=== PATIENT | female | born 1990 | race Caucasian/White ===

== ENCOUNTER 2023-06-07 08:45 | Emergency (ER) | payer OTHER, SELFPAY ==
--- NOTE | ~2023-06-07 | XR_ITS ---
EXAMINATION: XR FOOT, RIGHT CLINICAL INFORMATION: Dropped heavy object on foot COMPARISON: None available. TECHNIQUE: AP, lateral, and oblique views of the right foot. FINDINGS: No acute visible fracture dislocation. Slight hallux valgus. Suggestion of pes cavus. Joint spaces and alignment are maintained. Soft tissues are unremarkable. XR/XR foot RT min 3V IMPRESSION: 1. No acute visible fracture or dislocation. 2. Slight hallux valgus. 3. Suggestion of pes cavus.
[2023-06-07 08:52] VITALS: BP 143/81; PULSE 110; RESP 19; TEMP 36.6; O2SAT 98; BMI 23.9
--- NOTE | 2023-06-07 09:50 | ED.LOWEXIN ---
HPI - Extremity Injury (Lower) General Chief Complaint: Extremity Injury, Lower Stated Complaint: R foot inj Time Seen by Provider: 06/07/23 09:39 Source: patient and RN notes reviewed Mode of arrival: ambulatory Limitations: no limitations History of Present Illness HPI Narrative: This is a 32-year-old female, with a history of complex regional pain syndrome, presenting to the emergency department with complaints of right foot pain since last night. Patient states that a fire extinguisher accidentally dropped onto the top of her foot. She immediately had pain. She states that she has had increased pain and swelling in her right foot. She has been alternating ibuprofen and Tylenol without any relief. She states that she previously fractured her foot in the past. She does not weight bear on this foot secondary to the complex regional pain syndrome that she has. No other complaints or concerns at this time. MD complaint: foot injury Onset (ago): day(s) Type of Injury: blunt Place: home Severity: severe Exacerbating factors: movement and palpation Context: direct blow Associated symptoms: swelling Other symptoms: none Treatments prior to arrival: NSAIDS Related Data Allergies Allergy/AdvReac Type Severity Reaction Status Date / Time pregabalin [From Lyrica] Allergy Rash Verified 06/07/23 08:52 transparent dressing Allergy Rash Verified 06/07/23 08:52 [Tegaderm] oxycodone AdvReac Vomiting Verified 06/07/23 08:52 Review of Systems Review of Systems: Yes all other systems are reviewed and are negative Constitutional: Constitutional: Reports as per [facility] Past Medical History Attestation statement: The following information was validated with the patient. Physical Exam Vital Signs: Vital Signs: Last Vital Signs Temp 98 F 06/07/23 08:52 Pulse 110 H 06/07/23 08:52 Resp 19 06/07/23 08:52 BP 143/81 H 06/07/23 08:52 Pulse Ox 98 06/07/23 08:52 O2 Del Method Room Air 06/07/23 08:52 BMI result Body Mass Index 23.9 Const: General: cooperative, comfortable and no acute distress Orientation/consciousness: patient oriented x3 Limitations: no limitations HEENT: Head: Yes normal to inspection, Yes normocephalic and Yes atraumatic Ears: hearing grossly normal bilaterally General nose exam: Normal external nose present Face and sinus: Yes normal facial exam Mouth: Normal oral and palatal mucosa present, oropharynx normal and moist mucous membranes Throat: Yes posterior oropharynx normal Eyes: General: appearance normal, both eyes and all related structures Eyelids: Yes eyelids normal Conjunctivae: conjunctivae normal Sclerae: sclerae normal Pupils: Equal, round and reactive pupils present EOM: EOMs intact bilaterally Neck: Neck: Yes normal visual inspection, Yes full ROM and Yes no lymphadenopathy Lymphatic: no lymphadenopathy noted Chest: Chest palpation & inspection: normal inspection of the chest Resp: Effort & Inspection: normal respiratory effort and able to speak in complete sentences Cardio: Rate: regular rate Rhythm: regular rhythm GI: Inspection: Yes normal to inspection Skin: General skin exam: no rashes or lesions noted Trauma: no lacerations or abrasions Wounds: no wounds Neuro: General: patient oriented x3 and moves all extremities Cranial nerves: Yes Equal, round and reactive pupils present Extrem: Other: Right foot dorsal aspect there is moderate edema and ecchymosis noted, with exquisite tenderness palpation along the 3rd 4th and 5th metatarsals. Decreased range of motion of the ankle secondary to pain. No tenderness palpation along the medial or lateral malleolus. DP pulse 2 +. Distal sensation circulation intact. General: Yes normal to inspection Right upper extremity: normal to inspection Left upper extremity: normal to inspection Left lower extremity: normal to inspection Medical Decision Making Medical Decision Making MDM Narrative: This is a 32-year-old female, with a history of complex regional pain syndrome, presenting to the emergency department for evaluation of right foot pain status post dropping a fire extinguisher to the top of her foot last night. On arrival, patient tachycardic at 110, likely secondary to pain, denies any chest pain, dizziness, lightheadedness, or shortness of breath. On examination, patient has tenderness palpation along the 2nd 3rd and 4th metatarsals. No 5th metatarsal tenderness. No tenderness palpation along the medial or lateral malleolus. Differential diagnoses include fracture, dislocation, sprain, strain. Less likely compartment syndrome. X-ray was obtained revealing no acute bony abnormalities, there is evidence of pes cavus as well as hallux valgus. Discussed findings with patient. Patient is already nonambulatory on this foot, advised to rest, ice, elevate, and use Cr wrap. Advised to continue alternate between ibuprofen and Tylenol as needed for pain. Given orthopedic follow-up if symptoms persist. Given return precautions. She understands and agrees with plan. Patient stable for discharge Differential Diagnosis Differential Diagnoses: The differential diagnosis associated with the presentation includes See above Admission/Observation Consideration of admission/observation: Escalation of care including admission/observation considered Escalation of care including admission/observation considered however given workup today not warranted at this time. Radiology Impression Discussion of test interpretation with radiology: I have reviewed the radiologist's reading. Radiologist Impression: EXAMINATION: XR FOOT, RIGHT CLINICAL INFORMATION: Dropped heavy object on foot COMPARISON: None available. TECHNIQUE: AP, lateral, and oblique views of the right foot. FINDINGS: No acute visible fracture dislocation. Slight hallux valgus. Suggestion of pes cavus. Joint spaces and alignment are maintained. Soft tissues are unremarkable. XR/XR foot RT min 3V IMPRESSION: 1. No acute visible fracture or dislocation. 2. Slight hallux valgus. 3. Suggestion of pes cavus. Discharge Plan Discharge Clinical Impression: Contusion of foot, right Patient Disposition: Home, Self-Care Instructions: Foot Contusion (ED) Additional Instructions: Your seen in the emergency department after dropping a fire extinguisher on your right foot last night. Your x-rays do not show any broken bones. Please rest, ice, use Cr wrap, and elevate your foot for pain and swelling reduction. Continue alternating between ibuprofen and Tylenol as needed for pain. If your symptoms do not improve over the next several days, you may follow-up with the orthopedic team, call to make an appointment. If any new or worsening symptoms occur including but not limited to increased redness, swelling, fevers, chills, chest pain, shortness of breath, please return for re-evaluation. Referrals: [facility] Orthopedic Surgeons [Provider Group]
== END 2023-06-07 11:03 | disposition home or self-care (01) ==
PROVIDERS: Emergency Provider Student in an Organized Health Care Education/Training Program
DX: S90.31XA Contusion of right foot, initial encounter (principal); Y29.XXXA Contact with blunt object, undetermined intent, initial encounter; Y93.79 Activity, other specified sports and athletics; Y92.9 Unspecified place or not applicable; Y99.8 Other external cause status
CPT/HCPCS: 73630; 99283

== ENCOUNTER 2024-01-01 11:32 | Outpatient (AMB) | payer OTHER, SELFPAY ==
--- NOTE | 2024-01-01 11:34 | A.OFFVIS_ITS ---
Vital Signs 01/01/24 11:39 Height 5 ft 3 in Weight 148 lb BMI 26.2 BP 138/77 Blood Pressure Location Rt brachial Position Sitting Pulse 106 H Pulse Source Pulse Oximeter Pulse Oximetry (%) 97 Oxygen Delivery Method Room Air Intake Visit Reasons: Complex regional pain syndrome Intake Note: Pain today 11/06 Allergies pregabalin [From Lyrica] Allergy (Verified 01/01/24 11:40) Rash transparent dressing [Tegaderm] Allergy (Verified 01/01/24 11:40) Rash oxycodone Adverse Reaction (Verified 01/01/24 11:40) Vomiting HPI HPI Complex regional pain syndrome: Details: Patient is a pleasant 33 years old female with past history of fibromyalgia, ADH D, fibromyalgia, insomnia, tension headaches, postural orthostatic tachycardia syndrome, CRPS, presents today for initial evaluation for CRPS. Patient was diagnosed with CRPS around age 16 at [facility]. Patient reports right foot fractures at age 11 or 12. She underwent extensive conservative and interventional treatments including surgery, injections and SCS implant in 2011 which was removed due to infection and re-implanted a year later but was removed again due to infection. Patient presents with residual neuropathy of the right lower extremity and foot with evidence of CRPS associated with temperature changes, atrophic changes in skin, allodynia, hyperalgesia, and loss of hair growth. It is markedly cold to touch compared to the surrounding skin on the same leg as well as the corresponding area on the left lower extremity. Patient also reports widespread body pain due to fibromyalgia, worse on the right side. Pain affects her daily activities and fu nctioning, mood, sleep, mobility, social interactions and quality of life. Patient is on permanent physical disability due to CRPS. 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 Location: Right foot pain due to CRPS, whole body pain and right side lower back Duration: Chronic pain since right foot fracture at age of 11 or 12 Characteristics of symptom or complaint: Aching, burning, tingling, numbness, stabbing, throbbing, hurting, sharp Aggravating or associated factors: Cold weather, movement, walking, stress Relieving factors: Ibuprofen, Tylenol, tried pregabalin and oxycodone Treatment: SCS implant and removal x2, injections, PT/OT, acupuncture, TENS, massage [facility] Medical History (Updated 01/02/24 @ 21:33 by SILVIA Doe) Postural orthostatic tachycardia syndrome Deviated nasal septum Family history of breast cancer Fibromyalgia Dry eyes Insomnia ADHD (attention deficit hyperactivity disorder) Tension headache Social History (Updated 01/01/24 @ 11:43 by Minda Cornejo) Alcohol intake: current Alcohol intake frequency: a few times a week Patient Tobacco Use Status: Former Tobacco user Substance Use Type: Marijuana Review of Systems Const All systems reviewed & are unremarkable except as noted in HPI and below Physical Exam Vital Signs: Last Vital Signs Pulse 106 H 01/01/24 11:39 BP 138/77 01/01/24 11:39 Pulse Ox 97 01/01/24 11:39 Oxygen Delivery Method Room Air 01/01/24 11:39 BMI result Body Mass Index 26.2 General: Appears afebrile. Alert and oriented. Mood and affect appropriate. Follows and participates in conversation appropriately. Respiratory effort is unlabored. No cough. Able to transition from sit to stand unassisted. Ambulates with bilaterally normal heel strike and toe off. Extrem Other: Right lower extremity/foot: temperature changes, atrophic changes in skin, mild swelling, allodynia, hyperalgesia, decreased ROM, stiffness, and loss of hair growth. This is moderately tender to palpation. It is markedly cold to touch compared to the surrounding skin on the same leg as well as the corresponding area on the left lower extremity. 2+ pedal pulses. Decreased capillary refill, R<L. Results Reviewed Results Reviewed: No imaging results are available for review today. Assessment & Plan Assessment & Plan (1) Fibromyalgia: Code(s): M79.7 - Fibromyalgia Category: Medical (2) CRPS 1 (complex regional pain syndrome I) of lower limb: Code(s): G90.529 - Complex regional pain syndrome I of unspecified lower limb Category: Medical (3) Chronic pain syndrome: Code(s): G89.4 - Chronic pain syndrome Category: Medical (4) Causalgia of right lower limb: Code(s): G57.71 - Causalgia of right lower limb Category: Medical Plan Discussed interventional treatments and nonopioid medical management for CRPS right lower extremity, including neuromodulation with PNS vs SCS, diagnostic vs therapeutic injections and lumbar sympathetic block. Patient has exhausted multiple other treatment modalities including oral and topical medications, physical therapy, injections and permanent neuromodulation with SCS implant x2 (removed due to infection). We discussed peripheral nerve stimulation in greater detail today and patient agreed to proceed. Informational brochures provided to patient today. Schedule right posterior tibial and common peroneal nerve blocks, ultrasound guided for potential procedure planning of peripheral nerve stimulation in the future. Expectations, risks and benefits were reviewed. Script send to [facility] for a low- dose naltrexone for fibromyalgia and CRPS pain syndromes. Side effects and precautions were discussed with patient in greater detail. Patient was instructed to avoid alcohol, opioids, recreational drugs and sedatives. Antonella Nuñez, & Alice Case. (2013). Treatment of Complex Regional Pain Syndrome (CRPS) using low dose naltrexone (LDN). Journal of neuroimmune pharmacology : the official journal of the Society on NeuroImmune Pharmacology, 8(3), 470?476. https://doi.org/10.1007/d00141-134-3196-i Patient is aware she will be contacted to schedule this procedure. All questions were answered and the patient is in agreement of plan. Follow-up after injections and sooner as needed. Medications: New naltrexone 4.5 mg PO DAILY 30 days 30 caps 0RF pain G90.529 - Complex regional pain syndrome I of unspecified lower limb, M79.7 - Fibromyalgia Coding Level of Care Code New Pt Level 4 (91049) Complex EM visit Add On G2211 Diagnoses Fibromyalgia M79.7 CRPS 1 (complex regional pain syndrome I) of lower limb G90.529 Chronic pain syndrome G89.4 Causalgia of right lower limb G57.71
[2024-01-01 11:39] VITALS: BP 138/77; PULSE 106; O2SAT 97; BMI 26.2
== END 2024-01-01 11:59 | disposition home or self-care (01) ==
PROVIDERS: Visit Provider Nurse Practitioner Family
DX: M79.7 Fibromyalgia (principal); G90.529 Complex regional pain syndrome I of unspecified lower limb; G89.4 Chronic pain syndrome
CPT/HCPCS: 99204; G2211

== ENCOUNTER → 2024-01-01 11:32 | Outpatient (BNVA) | payer OTHER, SELFPAY | PROVIDERS: Visit Provider Nurse Practitioner Family | DX: M79.7 Fibromyalgia (principal); G89.4 Chronic pain syndrome; G90.529 Complex regional pain syndrome I of unspecified lower limb | CPT/HCPCS: 99202 ==

== ENCOUNTER 2024-02-11 12:54 | Outpatient (AMB) | payer OTHER, SELFPAY ==
--- NOTE | 2024-02-11 12:56 | MHC.OFFVIS ---
Vital Signs 02/11/24 12:59 Height 53 ft Weight 140 lb BMI 0.2 BP 128/73 Blood Pressure Location Rt brachial Position Sitting Pulse 91 Pulse Source Pulse Oximeter Pulse Oximetry (%) 98 Oxygen Delivery Method Room Air Intake Visit Reasons: FU Medication review Intake Note: Pain today 10/06 Food Service Aide Required: No Accompanied by: Self / Same As Patient Allergies pregabalin [From Lyrica] Allergy (Verified 02/11/24 13:00) Rash transparent dressing [Tegaderm] Allergy (Verified 02/11/24 13:00) Rash oxycodone Adverse Reaction (Verified 02/11/24 13:00) Vomiting HPI Comments Details: Patient presents today for follow up for medication review. She also has pending prior authorization approval for right posterior tibial and common peroneal nerve blocks for potential [employer] PNS trial. Patient reports good tolerance and no side effects with low dose naltrexone at 4.5 mg daily with mild benefit. She is interested to increase LDN slightly for pain control. Denies any recent cough, cold, infection, fever or other significant changes in medical history since last office visit. PRIOR: Patient is a pleasant 33 years old female with past history of fibromyalgia, ADHD, fibromyalgia, insomnia, tension headaches, postural orthostatic tachycardia syndrome, CRPS, presents today for initial evaluation for CRPS. Patient was diagnosed with CRPS around age 16 at [facility]. Patient reports right foot fractures at age 11 or 12. She underwent extensive conservative and interventional treatments including surgery, injections and SCS implant in 2011 which was removed due to infection and re-implanted a year later but was removed again due to infection. Patient presents with residual neuropathy of the right lower extremity and foot with evidence of CRPS associated with temperature changes, atrophic changes in skin, allodynia, hyperalgesia, and loss of hair growth. It is markedly cold to touch compared to the surrounding skin on the same leg as well as the corresponding area on the left lower extremity. Patient also reports widespread body pain due to fibromyalgia, worse on the right side. Pain affects her daily activities and functioning, mood, sleep, mobility, social interactions and quality of life. Patient is on permanent physical disability due to CRPS. 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 Location: Right foot pain due to CRPS, whole body pain and right side lower back Duration: Chronic pain since right foot fracture at age of 11 or 12 Characteristics of symptom or complaint: Aching, burning, tingling, numbness, stabbing, throbbing, hurting, sharp Aggravating or associated factors: Cold weather, movement, walking, stress Relieving factors: Ibuprofen, Tylenol, tried pregabalin and oxycodone Treatment: SCS implant and removal x2, injections, PT/OT, acupuncture, TENS, massage PFSH Medical History Postural orthostatic tachycardia syndrome Deviated nasal septum Family history of breast cancer Fibromyalgia Dry eyes Insomnia ADHD (attention deficit hyperactivity disorder) Tension headache Social History Alcohol intake: current Alcohol intake frequency: a few times a week Patient Tobacco Use Status: Former Tobacco user Substance Use Type: Marijuana Review of Systems Const All systems reviewed & are unremarkable except as noted in HPI and below Physical Exam Vital Signs: Last Vital Signs Pulse 91 02/11/24 12:59 BP 128/73 02/11/24 12:59 Pulse Ox 98 02/11/24 12:59 Oxygen Delivery Method Room Air 02/11/24 12:59 BMI result Body Mass Index 0.2 General: Appears afebrile. Alert and oriented. Mood and affect appropriate. Follows and participates in conversation appropriately. Respiratory effort is unlabored. No cough. Able to transition from sit to stand unassisted. Ambulates with bilaterally normal heel strike and toe off. Extrem Other: Right lower extremity/foot: temperature changes, atrophic changes in skin, slight swelling, allodynia, hyperalgesia, decreased ROM, stiffness, and loss of hair growth. This is moderately tender to palpation. It is markedly cold to touch compared to the surrounding skin on the same leg as well as the corresponding area on the left lower extremity. 2+ pedal pulses. Decreased capillary refill, R<L. Results Reviewed Results Reviewed: No imaging results are available for review today. Assessment & Plan Assessment & Plan (1) Fibromyalgia: Code(s): M79.7 - Fibromyalgia Category: Medical (2) CRPS 1 (complex regional pain syndrome I) of lower limb: Code(s): G90.529 - Complex regional pain syndrome I of unspecified lower limb Category: Medical (3) Chronic pain syndrome: Code(s): G89.4 - Chronic pain syndrome Category: Medical (4) Causalgia of right lower limb: Code(s): G57.71 - Causalgia of right lower limb Category: Medical Plan Patient has been tolerating LDN 4.5 mg daily without any side effects and with good tolerance. Will increase to 6 mg daily. Patient will continue monitor for any side effects. Script sent to [facility], [place], [place]. Pending PA for right posterior tibial and common peroneal nerve blocks, ultrasound guided for potential procedure planning of peripheral nerve stimulation in the future. Expectations, risks and benefits were reviewed. Patient is aware she will be contacted to schedule this procedure. All questions were answered and the patient is in agreement of plan. Follow-up after injections and sooner as needed. Medications: New pharmacy compounding accessory 1 ea miscellaneous DAILY 30 days PRN 30 ea 0RF pain G89.4 - Chronic pain syndrome, G90.529 - Complex regional pain syndrome I of unspecified lower limb, M79.7 - Fibromyalgia Coding Level of Care Code Est Pt Level 4 (39019) Complex EM visit Add On G2211 Diagnoses Fibromyalgia M79.7 CRPS 1 (complex regional pain syndrome I) of lower limb G90.529 Chronic pain syndrome G89.4 Causalgia of right lower limb G57.71
[2024-02-11 12:59] VITALS: BP 128/73; PULSE 91; O2SAT 98
== END 2024-02-11 13:13 | disposition home or self-care (01) ==
PROVIDERS: Visit Provider Nurse Practitioner Family
DX: M79.7 Fibromyalgia (principal); G89.4 Chronic pain syndrome; G57.71 Causalgia of right lower limb
CPT/HCPCS: 99214; G2211

== ENCOUNTER → 2024-02-11 12:54 | Outpatient (BNVA) | payer OTHER, SELFPAY | PROVIDERS: Visit Provider Nurse Practitioner Family | DX: M79.7 Fibromyalgia (principal); G90.A Postural orthostatic tachycardia syndrome [POTS]; G57.71 Causalgia of right lower limb; G89.4 Chronic pain syndrome | CPT/HCPCS: 99212 ==

== ENCOUNTER 2024-04-01 09:53 | Outpatient (AMB) | payer OTHER, SELFPAY ==
[2024-04-01 10:03] VITALS: BP 136/80; PULSE 116; O2SAT 97
--- NOTE | 2024-04-01 10:03 | MHC.OFFVIS ---
Vital Signs 04/01/24 10:03 Weight 163 lb BP 136/80 Blood Pressure Location Lt brachial Position Sitting Pulse 116 H Pulse Oximetry (%) 97 Oxygen Delivery Method Room Air Intake Visit Reasons: CRPS Allergies pregabalin [From Lyrica] Allergy (Verified 04/01/24 10:04) Rash transparent dressing [Tegaderm] Allergy (Verified 04/01/24 10:04) Rash oxycodone Adverse Reaction (Verified 04/01/24 10:04) Vomiting Medication List - Last Reconciled 04/01/24 by Carly Flores, [employer] dextroamphetamine-amphetamine 10 mg 1 tab PO DAILY dextroamphetamine-amphetamine 15 mg 1 tab PO BID eszopiclone 2 mg PO BEDTIME PRN famotidine 20 mg PO BID levocetirizine mg PO naltrexone 4.5 mg PO DAILY 30 days pharmacy compounding accessory 1 ea miscellaneous DAILY PRN 30 days HPI HPI CRPS: Details: 33 F here to discuss LDN dosing and PNS Has had SCS implant/explant x2, did not help Multiple ankle fractures and injuries Has tried multiple other modalities without help started LDN with good effect 4.5mg dose not helpful found 6mg helpful - no side effects would like to continue same dose PFSH Medical History Postural orthostatic tachycardia syndrome Deviated nasal septum Family history of breast cancer Fibromyalgia Dry eyes Insomnia ADHD (attention deficit hyperactivity disorder) Tension headache Social History Alcohol intake: current Alcohol intake frequency: a few times a week Patient Tobacco Use Status: Former Tobacco user Substance Use Type: Marijuana Physical Exam Vital Signs: Last Vital Signs Pulse 116 H 04/01/24 10:03 BP 136/80 04/01/24 10:03 Pulse Ox 97 04/01/24 10:03 Oxygen Delivery Method Room Air 04/01/24 10:03 On exam today: Appears afebrile. Alert and oriented. Mood and affect appropriate. Follows and participates in conversation appropriately. Respiratory effort is unlabored. Able to transition from sit to stand unassisted. Ambulates with bilaterally normal heel strike and toe off. Able to stand and walk on toes and heels. Assessment & Plan Assessment & Plan (1) CRPS 1 (complex regional pain syndrome I) of lower limb: Code(s): G90.529 - Complex regional pain syndrome I of unspecified lower limb Category: Medical Plan discussed neuromodulation but i don't think this would be helpful given her age and past history of failed neuromod has exhausted everything else agree with continuing LDN. no side effects reported. finding it helpful. dose is on the higher end of the spectrum so discussed no further increases. patient understood. f/u with alfredo. Medications: New naltrexone (Naltrex) 6 mg (4 x 1.5 mg) PO DAILY 120 caps 0RF Benny Colon MD naltrexone (Naltrex) 6 mg (4 x 1.5 mg) PO DAILY 120 caps 0RF SILVIA Doe Coding Level of Care Code Est Pt Level 4 (06689) Diagnoses CRPS 1 (complex regional pain syndrome I) of lower limb G90.529
--- OUTSIDE RECORDS SUMMARY | 2024-04-01 10:50 | XMS_ITS | Data Portability ---
Author Organization [facility], [employer] Address [address] [place] [phone] Assessment Encounter Date Assessment Date Assessment LastModified by Organization Details LastModified Time 12/21/2023 12/21/2023 During this encounter, 2 of the 3 elements of MDM addressed: (1)Number and Complexity of problems: 2 or more stable chronic illnesses (2)Amount/Complex ity of data (need 1 out of 3 categories): Category 3: Discussion of management or test interpretation (3)Moderate Risk of morbidity from additional diagnostic testing or treatment (one needed): Prescription Drug management [email or web address] Not available 12/21/2023 20:47:40 Plan of Treatment Reminders Order Date Submit Date Provider Last Modified By Organization Details Last Modified Time Details Appointments Annual Exam 2024 01:00P M LISETTE CALDERÓN PA-C Not available Not available Not available Lab TSH, ultra-sen sitive, serum 2023 [facility], [address] [place], [address], 12/21/2023 20:53:27 CBC 2023 [facility], [address] [place], [address], 12/21/2023 20:53:27 CMP, serum or plasma 2023 [facility], [address] [place], [address], 12/21/2023 20:53:27 lipid panel, serum 2023 024 [facility], [address], [place], [address], 12/21/2023 20:53:27 drug screen, urine 2023 024 [facility], One [facility], [facility], [place], [address], 12/21/2023 20:52:09 Referral genetic oncology referral - (re:famil y history of breast cancer) 2023 024 [facility] Family Cancer Risk Program, [address] , [facility], [place], [address], 12/24/2023 11:52:54 pain managemen t referral [address] [facility], [address] [place] [address] [address] [address], [place], [address], 12/24/2023 11:50:23 dermatolo gist referral 2023 024 [facility] Gonzalez Evans, [address] [place], [address], 12/24/2023 11:51:45 Procedures None recorded. Surgeries None recorded. Imaging None recorded. Medication Orders None recorded. Patient TargetsNo targets recorded. Patient InstructionsNo instructions recorded. Reason for Referral Genetic Oncology Referral fo r Family history of breast cancer (re:family history of breast cancer) Referring Physician: Family Alison Medicine, Encounter Date: 12/21/2023 Pain Management Referral for Complex regional pain syndrome Referring Physician: Family Alison Medicine, Encounter Date: 12/21/2023 Mason Foreman/Superintendant Referral for F amily history of neoplasm of skin Referring Physician: Family Catrina Rosas, Encounter Date: 12/21/2023 Results Created Date Observation Date Name Description Value Unit Range Abnormal Flag Note LastModifiedBy Organization Detail LastModifiedTime 12/21/19 24 12/21/2023 drug scree n, urine Amphetamines : positi ve Not Available [facility] [address] [facility], [place], [address], 12/21/2023 15:05:45 12/21/19 24 12/21/2023 drug scree n, urine Cannabinoids : positi ve Not Available [facility] [address], [place], [address], 12/21/2023 15:05:45 12/21/19 24 12/21/2023 drug scree n, urine Cocaine: negati ve Not Available [facility] [address], [place], [address], 12/21/2023 15:05:45 12/21/19 24 12/21/2023 drug scree n, urine Opiates: negati ve Not Available [address], [place], [address], 12/21/2023 15:05:45 12/21/19 24 12/21/2023 drug scree n, urine Phenocyclidi ne: negati ve Not Available [facility] [address], [place], [address], 12/21/2023 15:05:45 12/21/19 24 12/21/2023 drug scree n, urine Barbiturates : negati ve Not Available [address], [place], [address], 12/21/2023 15:05:45 12/21/19 24 12/21/2023 drug scree n, urine Benzodiazepi delgado: negati ve Not Available [facility] [address], [place], [address], 12/21/2023 15:05:45 12/21/19 24 12/21/2023 drug scree n, urine Ethanol: negati ve Not Available [facility] [address], [place], [address], 12/21/2023 15:05:45 12/21/19 24 12/21/2023 drug scree n, urine Hallucinogen s: negati ve Not Available [facility] [address], [place], [address], 12/21/2023 15:05:45 12/21/19 24 12/21/2023 drug scree n, urine Inhalants: negati ve Not Available [facility] [address] [facility], [place], [address], 12/21/2023 15:05:45 12/21/19 24 12/21/2023 drug scree n, urine Anabolic Steroids: negati ve Not Available [facility] [address] [facility], [place], [address], 12/21/2023 15:05:45 Result Notes None recorded. Problems Name Problem SNOMED Code Status Onset Date Resolution Date Notes Provider Name and Address Organization Details Recorded Time Postural orthostatic tachycardia syndrome 074866880 Active 2023 LISETTE CALDERÓN PA-C [address], [place], [address], [place] - [facility] 4 14:29:04 Insomnia 075706061 Active 2023 LISETTE CALDERÓN PA-C [address], [place], [address], [place] [facility] 4 14:29:06 Attention deficit hyperactivity disorder 179121678 Active 2023 LISETTE CALDERÓN PA-C [address], [place], [address], [place] - [facility] 4 14:29:09 Fibromyalgia 531821008 Active 2023 LISETTE CALDERÓN PA-C [address], [place], [address], [place] - [facility] 4 14:29:11 Dry eyes 155977217 Active 2023 LISETTE CALDERÓN PA-C [address], [place], [address], [place] - [facility] 4 20:38:29 Tension-type headache 205461666 Active 2023 LISETTE CALDERÓN PA-C [address], [place], [address], [facility] - [facility] 4 20:44:32 Deviated nasal septum 610367307 Active 2023 LISETTE CALDERÓN PA-C [address], [place], [address], [facility] 4 20:44:33 Family history of breast cancer 920953176 Active 2023 LISETTE CALDERÓN PA-C [address], [place], 1, [facility] Primary 4 20:44:35 Problem Notes None recorded. Procedures Surgical History Date Name Laterality Status Provider Name and Address Organization Details Recorded Time extraction of wisdom tooth completed LISETTE CALDERÓN PA-C [address] [facility] [address], [place], [address], [facility] 12/21/2023 14:37:51 Imaging Results None recorded. Procedure Notes None recorded. Medical Equipment None Reported. Allergies Allergen ID Allergen Name Allergen Category Reaction Reaction Severity Criticality Documentation Date Start Date Code Code System Note Provider Name and Address Organization Details Recorded Time 6286 Tegaderm medicatio n Not available Not available Not available 12/21/2023 Kerry islas [facility] 4 14:16:30 6287 Lyrica medicatio n Not available Not available Not available 12/21/2023 84386 1 RxNorm Kerry islas [facility] 4 14:16:37 Medications Name Sig Start Date Stop Date Status Note LastModified by Organization Details LastModified Time naltrexone 50 mg tablet active Not Available Not Available No t Available dextroampheta mine-amphetam ine 15 mg tablet TAKE 1 TABLET BY MOUTH IN THE MORNING AND 1 TABLET AT NOON. MAX DAILY AMOUNT 30 MG active 03/07 1 Dextr oamp- Amphe tamin 15 Mg Tab56 28 Ch Ar Not Available Not Available Not Available eszopiclone 2 mg tablet take 1 tablet daily at bedtime active Not Available Not Available No t Available Pepcid prn active Not Available Not Availa ble Not Available Xiidra 5 % eye drops in a dropperette active Not Available Not Availabl e Not Available Vitals Date Recorded Body weight Body mass index (BMI) Body height Oxygen saturation Oxygen saturation in Arterial blood by Pulse oximetry Heart rate Systolic blood pressure Diastolic blood pressure Provider Name and Address Organization Details Last Updated DateTime 4 81982.3 7 g 28.5 kg/m2 160.02 cm 99 % 99 % 74 /min 136 mm[Hg] 74 mm[Hg] Kerry Kaufman [place] [facility] 14:18:45 Social History None recorded. Functional Status None recorded. Mental Status None recorded. Family History Relationship Description Onset Age of this Age Resolved Age Notes LastModified by Organization Details LastModified Time Maternal Aunt Malignant tumor of breast 40 [email or web address] Not available 2023 14:32:37 Unspecified Relation Malignant tumor of breast patern al cousin , before age 40 [email or web address] Not available 12/21/2023 14:32:37 Unspecified Relation Malignant tumor of breast matern al great grandm other, age 70 Not available 12/21/2023 14:33:48 Mother Malignant neoplasm of skin [email or web address] Not available 2023 14:33:18 Maternal Grandmother Malignant tumor of lung hisotr y of smokin g [email or web address] Not available 12/21/2023 14:34:56 Paternal Aunt Glioblastoma multiforme 37 [email or web address] Not available 12/20 14:34:12 Father Myocardial infarction 55 poor lifest yle [email or web address] Not available 12/21/2023 14:34:46 Father Bipolar disorder [email or web address] Not available 2023 14:36:38 Brother Bipolar disorder [email or web address] Not available 2023 14:36:38 Brother Attention deficit hyperactivit y disorder [email or web address] Not available 12/20 20:50:54 Medical History No medical history recorded. Gynecological HistoryNo gynecological history recorded. Obstetrics History GPAL:G 0 P 0 0 0 0 Past Encounters Encounter ID Performer Location Encounter Start Date Encounter Closed Date Diagnosis/Indication Diagnosis SNOMED-CT Code Diagnosis ICD10 Code [id number] LISETTE CALDERÓN PA-C Main Office 1 [facility] [address] [place] [address] 12/21/2023 14:01:14 12/21/2023 15:00:19 Complex regional pain syndrome 564673513 G90.50 Patient ne w to provider [id number] 45919 Z76.89 Fibromyalgia 572778459 M [age] Attention deficit hyperactivity disorder 376535265 F90.9 Insomnia 646658405 F51.0 9 Postural o rthostatic tachycardia syndrome 001131243 G90.A Tension-type headache 39 6541398 G44.209 Deviated nasal septum 12 7588227 J34.2 Family his tory of breast cancer 483571435 Z80.3 Dry eyes 200127802 H04.1 23 Family his tory of neoplasm of skin 567080250 Z80.8 Screening for cardiovascular system disease 875685871 Z13.6 Thyroid di sorder screening 972316795 Z13.29 Health Concerns Section Related Observation LastModified by Organization Detai ls LastModified Time None Recorded Concern Status LastModified by Organization Details LastModified Time None Recorded Advance Directives Directive None Recorded Payers Encounter Date Sequence Insurance Name Policy Number Policy Mcfarland Covered Member ID Mcfarland Member ID Guarantor Name 12/21/[address] [facility] - DOS ON OR AFTER 2022 - MEDICARE ADVANTAGE [place] (MEDICARE REPLACEMENT/ADV ANTAGE - PPO) Kerry Ferguson [id number] Kerry Ferguson Notes Date Note Type Note Provider Name and Address Organization Details Recorded Time 12/21/2023 text/html 33 y/o F present s for a new patient visit to establish care. Previously seen by [facility]; record release signed at today's visit. Lives with partner in [facility], previously lived outside of [place]. Currently on disability related to complex regional pain syndrome. Last cpe and labs around 1 year ago. Primary concern at this time: establishing care. See A&P for details on chronic concerns. LISETTE CALDERÓN PA-C [address] [facility],[address], [place], [address], [place] - [facility] 12/21/2023 20:52:47 OBGyn Episode No OBEpisode recorded.
== END 2024-04-01 10:21 | disposition home or self-care (01) ==
PROVIDERS: Visit Provider Internal Medicine
DX: G90.529 Complex regional pain syndrome I of unspecified lower limb (principal)
CPT/HCPCS: 99214

== ENCOUNTER → 2024-04-01 09:53 | Outpatient (BNVA) | payer OTHER, SELFPAY | PROVIDERS: Visit Provider Internal Medicine | DX: G90.523 Complex regional pain syndrome I of lower limb, bilateral (principal) | CPT/HCPCS: 99212 ==

== ENCOUNTER 2024-04-28 11:12 | Outpatient (REF) | payer OTHER, SELFPAY ==
[2024-04-28 11:32] LABS: MANUAL DIFF FLAG NO
[2024-04-28 11:53] LABS: Basophils Absolute Auto 0.1 X10*3/uL (0.0-0.2); Basophils Percent Auto 0.7 % (0-2); Eosinophils Absolute Auto 0.7 X10*3/uL (0.0-0.4); Eosinophils Percent Auto 8.5 % (0-4); Hematocrit 40.1 % (37.0-47.0); Hemoglobin 13.8 g/dl (12.0-16.0); Imm Gran Abs Auto 0.01 X10*3/uL (0.00-0.03); Imm Gran Pct Auto 0.1 % (0.0-0.4); Lymphocytes Absolute Auto 2.5 X10*3/uL (1.2-4.9); Lymphocytes Percent Auto 28.6 % (20-40); Mean Corpuscular HGB Conc 34.4 g/dl (31.0-35.0); Mean Corpuscular Hemoglobin 30.3 pg (27.0-33.0); Mean Corpuscular Volume 88.1 fL (80.0-98.0); Mean Platelet Volume 9.5 fL (9.4-12.3); Monocytes Absolute Auto 0.5 X10*3/uL (0.1-1.2); Monocytes Percent Auto 5.8 % (2-11); Neutrophils Absolute Auto 4.9 x10*3/uL (2.0-8.3); Neutrophils Percent Auto 56.3 % (45-73); Platelet Count 395 X10*3/uL (160-400); Red Blood Count 4.55 X10*6/uL (4.20-5.50); Red Cell Distribution Width 11.9 % (11.0-16.0); White Blood Count 8.7 X10*3/uL (4.8-10.8)
[2024-04-28 12:52] LABS: Alanine Aminotransferase 11 U/L (0-31); Albumin Level 4.3 g/dL (3.5-5.0); Alkaline Phosphatase 60 U/L (39-117); Anion Gap 11 (12-20); Aspartate Amino Transferase 17 U/L (5-31); Bilirubin Total 0.6 mg/dL (0.0-1.0); Blood Urea Nitrogen 6 mg/dL (9-16); Calcium 8.8 mg/dL (8.4-10.2); Carbon Dioxide 25 mmol/L (22-29); Chloride 108 mmol/L (96-108); Cholesterol 127 mg/dL (<200); Estimated Glomerular Filt Rate > 60; Glucose Random 97 mg/dL (60-115); HDL Cholesterol 47 mg/dL (>40); LDL Cholesterol Calculated 64 mg/dL (<100); Potassium 3.9 mmol/L (3.3-5.1); Sodium 140 mmol/L (135-145); Total Protein 7.9 g/dL (6.5-8.0); Triglycerides 82 mg/dL (<150)
[2024-04-28 12:59] LABS: TSH reflex Free T4 0.68 uIU/mL (0.32-4.0)
--- OUTSIDE RECORDS SUMMARY | 2024-04-28 15:14 | XMS_ITS | Data Portability ---
Author Organization [facility], [employer] Address [address] [place] [phone] Assessment Encounter Date Assessment Date Assessment LastModified [...] or treatment (one needed): Prescription Drug management [email or web address] Not available 12/21/2023 20:47:40 Plan of Treatment Reminders Order Date Submit Date Provider Last Modified By Organization Details Last Modified Time Details Appointments Annual Exam 2024 01:00P M LISETTE CALDERÓN PA-C Not available Not available Not available Lab TSH, ultra-sen sitive, serum 2023 [facility], [address] [place], [address], 12/21/2023 20:53:27 CBC 2023 [facility], [address] [place], [address], 12/21/2023 20:53:27 CMP, serum or plasma 2023 [facility], [address] [place], [address], 12/21/2023 20:53:27 lipid panel, serum 2023 024 [facility], [address], [place], [address], 12/21/2023 20:53:27 drug screen, urine 2023 024 [email or web address] [facility], One [facility], [facility], [place], [address], 12/21/2023 20:52:09 Referral genetic oncology referral - (re:famil y history of breast cancer) 2023 024 [facility] Family Cancer Risk Program, [address] , [facility], [place], [address], 12/24/2023 11:52:54 pain managemen t referral [address] [facility], [address] [place] [address] [address] [address], [place], [address], 12/24/2023 11:50:23 dermatolo gist referral 2023 024 [facility] Gonzalez Evans, [address] [place], [address], 12/24/2023 11:51:45 Procedures None recorded. Surgeries None [...] Physician: Family Alison Medicine, Encounter Date: 12/21/2023 Strip Picker Referral for F amily history of neoplasm of skin Referring Physician: Family Catrina Rosas, Encounter Date: 12/21/2023 Results Created Date Observation Date Name Description Value Unit Range Abnormal Flag Note LastModifiedBy Organization Detail LastModifiedTime 12/21/19 24 12/21/2023 drug scree n, urine Amphetamines : positi ve Not Available [facility] [address] [facility], [place], [address], 12/21/2023 15:05:45 12/21/19 24 12/21/2023 drug scree n, urine Cannabinoids : positi ve Not Available [facility] [address], [place], [address], 12/21/2023 15:05:45 12/21/19 24 12/21/2023 drug scree n, urine Cocaine: negati ve Not Available [facility] [address], [place], [address], 12/21/2023 15:05:45 12/21/19 24 12/21/2023 drug scree n, urine Opiates: negati ve Not Available [address], [place], [address], 12/21/2023 15:05:45 12/21/19 24 12/21/2023 drug scree n, urine Phenocyclidi ne: negati ve Not Available [facility] [address], [place], [address], 12/21/2023 15:05:45 12/21/19 24 12/21/2023 drug scree n, urine Barbiturates : negati ve Not Available [address], [place], [address], 12/21/2023 15:05:45 12/21/19 24 12/21/2023 drug scree n, urine Benzodiazepi delgado: negati ve Not Available [facility] [address], [place], [address], 12/21/2023 15:05:45 12/21/19 24 12/21/2023 drug scree n, urine Ethanol: negati ve Not Available [facility] [address], [place], [address], 12/21/2023 15:05:45 12/21/19 24 12/21/2023 drug scree n, urine Hallucinogen s: negati ve Not Available [facility] [address], [place], [address], 12/21/2023 15:05:45 12/21/19 24 12/21/2023 drug scree n, urine Inhalants: negati ve Not Available [facility] [address] [facility], [place], [address], 12/21/2023 15:05:45 12/21/19 24 12/21/2023 drug scree n, urine Anabolic Steroids: negati ve Not Available [facility] [address] [facility], [place], [address], 12/21/2023 15:05:45 Result Notes None recorded. Problems Name Problem SNOMED Code Status Onset Date Resolution Date Notes Provider Name and Address Organization Details Recorded Time Postural orthostatic tachycardia syndrome 000955093 Active 2023 LISETTE CALDERÓN PA-C [address], [place], [address], [place] - [facility] 4 14:29:04 Insomnia 270681813 Active 2023 LISETTE CALDERÓN PA-C [address], [place], [address], [place] - [facility] 4 14:29:06 Attention deficit hyperactivity disorder 261889745 Active 2023 LISETTE CALDERÓN PA-C [address], [place], [address], [place] [facility] 4 14:29:09 Fibromyalgia 124344948 Active 2023 LISETTE CALDERÓN PA-C [address], [place], [address], [place] [facility] 4 14:29:11 Dry eyes 972709827 Active 2023 LISETTE CALDERÓN PA-C [address], [place], [address], [place] [facility] 4 20:38:29 Tension-type headache 516636505 Active 2023 LISETTE CALDERÓN PA-C [address], [place], [address], [facility] - [facility] 4 20:44:32 Deviated nasal septum 276489682 Active 2023 LISETTE CALDERÓN PA-C [address], [place], [address], [facility] 4 20:44:33 Family history of breast cancer 977836724 Active 2023 LISETTE CALDERÓN PA-C [address], [place], [address], [facility] - [facility] 4 20:44:35 Problem Notes None recorded. Procedures Surgical History Date Name Laterality Status Provider Name and Address Organization Details Recorded Time extraction of wisdom tooth completed LISETTE CALDERÓN PA-C [address] [facility] [address], [place], [address], [facility] 12/21/2023 14:37:51 Imaging Results None recorded. Procedure Notes None recorded. Medical Equipment None Reported. Allergies Allergen ID Allergen Name Allergen Category Reaction Reaction Severity Criticality Documentation Date Start Date Code Code System Note Provider Name and Address Organization Details Recorded Time 6286 Tegaderm medicatio n Not available Not available Not available 12/21/2023 37903 UNK Kerry Kaufman [facility] 4 14:16:30 6287 Lyrica medicatio n Not available Not available Not available 12/21/2023 48879 1 RxNorm Kerry Kaufman [facility] 4 14:16:37 Medications Name Sig Start Date Stop Date Status Note LastModified by Organization Details LastModified Time naltrexone 50 mg tablet active Not Available Not Available No t Available dextroampheta mine-amphetam ine 15 mg tablet TAKE 1 TABLET BY MOUTH IN THE MORNING AND 1 TABLET AT NOON. MAX DAILY AMOUNT 30 MG active Not Available Not Available No t Available eszopiclone 2 mg tablet take 1 [...] Address Organization Details Last Updated DateTime 4 12425.3 7 g 28.5 kg/m2 160.02 cm 99 % 99 % 74 /min 136 mm[Hg] 74 mm[Hg] Kerry Kaufman [place] [facility] 14:18:45 Social History None recorded. Functional Status None recorded. Mental Status None recorded. Family History Relationship Description Onset Age of this Age Resolved Age Notes LastModified by Organization Details LastModified Time Maternal Aunt Malignant tumor of breast 40 [email or web address] Not available 2023 14:32:37 Unspecified Relation Malignant tumor of breast patern al cousin , before age 40 [email or web address] Not available 12/21/2023 14:32:37 Unspecified Relation Malignant tumor of breast matern al great grandm other, age 70 Not available 12/21/2023 14:33:48 Mother Malignant neoplasm of skin [email or web address] Not available 2023 14:33:18 Maternal Grandmother Malignant tumor of lung hisotr y of smokin g [id number] Not available 12/21/2023 14:34:56 Paternal Aunt Glioblastoma multiforme 37 [email or web address] Not available 12/20 14:34:12 Father Myocardial infarction 55 poor lifest yle [email or web address] Not available 12/21/2023 14:34:46 Father Bipolar disorder Not available 2023 14:36:38 Brother Bipolar disorder [email or web address] Not available 2023 14:36:38 Brother Attention deficit hyperactivit y disorder Not available 12/20 20:50:54 Medical History No medical history recorded. Gynecological HistoryNo gynecological history recorded. Obstetrics History GPAL:G 0 P 0 0 0 0 Past Encounters Encounter ID Performer Location Encounter Start Date Encounter Closed Date Diagnosis/Indication Diagnosis SNOMED-CT Code Diagnosis ICD10 Code Diagnosis Note [id number] LISETTE CALDERÓN PA-C Main Office [address] [facility] 1 [place] [address] 12/21/2023 14:01:14 12/21/2023 15:00:19 Complex regional pain syndrome 885854981 G90.50 Diagnosed by [facility] Neurology Dept.Diagn osed around age 16/16.On disability related to such.Reque sting pain management clinic referral. Patient ne w to provider [id number] 31903 Z76.89 Patient new to practice, here to establish care. Has not been seen by this office or provider within the last 3 years. Fibromyalgia 923298909 M 80.7 Continues with [facility] PT and HEP. Attention deficit hyperactivity disorder 138168584 F90.9 Diagnosed around 2019 at [facility] with neur psychiatry .Brothers share a history of such.Saw psychiatri once or twice during COVID-10 pandemic.P reviously managed by former primary care, will transition care to our office at this time.[facility] at and S appropriat e. Contract signed at today's visit. Will start autorefill as well. Insomnia 681437422 F51.0 9 Follows with sleep neurology at [facility] for CRPS-relat ed insomnia.C urrently on eszopiclon e 2 mg qhs. Reports building up a tolerance to multiple sleep medication s, and therefore requires frequent rotation of med management . Postural o rthostatic tachycardia syndrome 013139493 G90.A Diagnosed after tilt table testing in 2018 at [facility]. Managed conservati vely. Not following with cardiology at this time. Tension-type headache 39 9278748 G44.209 Improved. Often stress induced. Typically occurs 1-2 mo, previously on amitripyli ne and nortriptyl ine.Previo usly occurred mulitple times per week. Deviated nasal septum 12 0897823 J34.2 Known history of deviated septum, previously evaluated by ENT.Advise d against surgical interventi on in the setting of CRPS.Will management subsequent concerns conservati vely, such as sinus infections . Family his tory of breast cancer 937879099 Z80.3 Family history of breast cancer: maternal aunt, paternal cousin, maternal great grandmothe r.Patient tested negative for BRCA gene.Ident ifies as an Ashkenazi Restorationist individual , therefore at higher risk of breast ca.Pat gibson working with genetic counseling at [facility], and would like to get set up with a high-risk family screening program. Dry eyes 781892753 H04.1 23 Followed/m anaged by [facility]. Paternal history of same.Using Xiidra eye drops, as per med list.Has tried punctal plugs with no success. Family his tory of neoplasm of skin 757363996 Z80.8 Screening for cardiovascular system disease 138334177 Z13.6 Thyroid di sorder screening 152281069 Z13.29 Health Concerns Section Related Observation LastModified by Organization Detai ls LastModified Time None Recorded Concern Status LastModified by Organization Details LastModified Time None Recorded Advance Directives Directive None Recorded Payers Encounter Date Sequence Insurance Name Policy Number Policy Mcfarland Covered Member ID Mcfarland Member ID Guarantor Name 12/21/2023 1 [facility] - DOS ON OR AFTER 2022 - MEDICARE [place]ANTAGE [place]ARE [place]ACEMENT/ADV ANTAGE - PPO) Kerry Ferguson [id number] Kerry Ferguson Notes Date Note Type Note Provider Name and Address Organization Details Recorded Time 12/21/2023 text/html 33 y/o F present s for a new patient visit to establish care. Previously seen by [facility]; record release signed at today's visit. Lives with partner in [facility], previously lived outside of [place]. Currently on disability related to complex regional pain syndrome. Last cpe and labs around 1 year ago. Primary concern at this time: establishing care. See A&P for details on chronic concerns. LISETTE CALDERÓN PA-C 1 [facility],[address], [place], [address], [facility] 12/21/2023 20:52:47 OBGyn Episode No OBEpisode recorded.
--- OUTSIDE RECORDS SUMMARY | 2024-04-28 15:14 | XMS_ITS | Patient Health Record ---
Author Organization [facility] liance Address [address] [place] [address] Care Team Providers Care Traffic Controller Cable Name Role Phone Augustina Gifford Primary Care Provider Un available PriyankabillyButch aragon Unavailable [phone] ALLERGIES Allergen (clinical drug ingredient) Drug/Non Drug Allergy documented on EMR Reaction Allergy Type Onset Date Status adhesives (uncoded) rash Allergy 05/06/2012 Active tegaderm (uncoded) rash Allergy 05/12/2019 Active pregabalin Lyrica Rash Drug Allergy Active pregabalin Pregabalin rash Drug Allergy 07/28/2015 Acti ve REASON FOR REFERRAL No Information MEDICATIONS Medication SIG (Take, Route, Frequency, Duration) Notes Start Date End Date Status Flonase Allergy Relief 50 MCG/ACT 1 spray in each nostril Nasally Once a day prn Active Adderall 15 MG 1 tablet in am Orall y Once a day Active Adderall 10 MG 1 tablet in afternoo n Orally Once a day Active Ambien CR 6.25 MG 1 - 2 tablet at bedt judi as needed Orally Once a day Active Mirena (52 MG) 20 MCG/24HR as directed Intrauterine inserted 2012 Active Xyzal Allergy 24HR 5 MG 1 tablet in the evening Orally Once a day Active IMMUNIZATIONS Vaccine Route Administration Date Status Comme nts Flu Vac (Fluzone /Alfuria) QIV PFS Unknown 02/09/2019 A dministered influenza, unspecified formulation Unknown 04/12/2021 A dministered Moderna COVID-19 Vaccine IM Unknown 07/20/2020 Administ ered Moderna COVID-19 Vaccine IM Unknown 08/17/2020 Administ ered [employer] Exchange COVID-19 Vaccine IM Unknown 03/11/2021 Administered Tdap Vac (Boostrix) PFS, IM Unknown 09/13/2020 Administ ered SOCIAL HISTORY Sex Assigned At : Social History Observation Description Sex Assigned At Unknown Alcohol Screen Question Answer Notes Did you have a drink contain ing alcohol in the past year? Yes How often did you have a dri nk containing alcohol in the past year? Monthly or less (1 point) How many drinks did you have on a typical day when you were drinking in the past year? 3 or 4 drinks (1 point) How often did you have 6 or more drinks on one occasion in the past year? Never (0 point) Points 2 Interpretation Negative PROBLEMS Problem Type ICD Code Onset Dates Problem Status W/U Status Risk SNOMED Code Notes Problem PTSD (post-traumatic stress disorder) (F43.10) Active confirmed Posttraumatic stress disorder (04658797) Problem Insomnia (G47.00) Active confirmed Insomnia (982084168) Problem Fibromyalgia (M79.7) Active confirmed Fibromyalgia (207528125) Problem ADHD (attention deficit hyperactivity disorder) (F90.9) Active confirmed Attention defic it hyperactivity disorder (090052247) Problem Encounter for general adult medical examination w/o abnormal findings (Z00.00) Active confirmed 467617800 Problem POTS (postural orthostatic tachycardia syndrome) (I49.8) Active confirmed Postural orthostatic tachycardia syndrome (disorder) (541599550) Problem Complex regional pain syndrome type 1 of lower extremity, unspecified laterality (G90.529) Active confirmed 606308317 Problem Chronic allergic rhinitis due to animal hair and dander (J30.81) Active confirmed [id number] PLAN OF TREATMENT No Information Insurance Providers Payer Name Payer Address Payer Phone Subscriber Number Group Number Insured Name Patient Relationship to Insured Coverage Start Date Coverage End Date Formerly [facility] [address] [place] [address] [id number] CHUNG GUALLPA Self - patient is the insured [phone] MEDICAL (GENERAL) HISTORY Medical History History ICD Code Depression F32.9
== END 2024-04-28 11:13 | disposition home or self-care (01) ==
LOC: HO.LAB 11:12
PROVIDERS: PCP Physician Assistant; Visit Provider Physician Assistant
DX: Z13.6 Encounter for screening for cardiovascular disorders (principal)
CPT/HCPCS: 36415; 80053; 80061; 84443; 85025